=== PATIENT | male | born 1980 | race Caucasian/White ===

== ENCOUNTER 2021-02-19 05:52 | Emergency (ER) | payer OTHER, SELFPAY ==
[2021-02-19 06:01] VITALS: BP 116/73; PULSE 61; RESP 18; O2SAT 96
[2021-02-19 06:11] VITALS: BP 116/73; PULSE 56; RESP 16; TEMP 36.4; O2SAT 98; BMI 29.4
[2021-02-19 06:12] VITALS: BMI 29.4
--- NOTE | 2021-02-19 06:13 | CT_ITS ---
PROCEDURE INFORMATION: Exam: CT Abdomen And Pelvis Without Contrast Exam date and time: 02/19/2021 6:13 AM Age: 41 years old Clinical indication: Other: Flank pain; Additional info: RT flank pain no other history of kidney stones or issues just having pain never had before right side TECHNIQUE: Imaging protocol: Computed tomography of the abdomen and pelvis without contrast. Radiation optimization: All CT scans at this facility use at least one of these dose optimization techniques: automated exposure control; mA and/or kV adjustment per patient size (includes targeted exams where dose is matched to clinical indication); or iterative reconstruction. COMPARISON: No relevant prior studies available. FINDINGS: Liver: Unremarkable liver parenchyma on the basis of a noncontrast only study. Gallbladder and bile ducts: No calcified stones. No ductal dilation. Pancreas: Unremarkable. No significant pancreatic ductal dilatation seen. Spleen: Unremarkable. No splenomegaly noted. Adrenal glands: Normal. No mass. Kidneys and ureters: There is some trace asymmetric right renal pelvic fat stranding in comparison to the left which is nonspecific and which is without evidence of a radiodense obstructing ureteral stone. Cannot exclude a recently passed stone. Right kidney 3 mm nonobstructing stone. Stomach and bowel: Colonic diverticulosis without evidence of diverticulitis. Appendix: The appendix is visualized and appears unremarkable. Intraperitoneal space: No free air or free fluid. Vasculature: Unremarkable. No abdominal aortic aneurysm. Lymph nodes: Unremarkable. No enlarged lymph nodes. Urinary bladder: Urinary bladder is partly decompressed and not well evaluated. Reproductive: In the lower aspect of the prostate gland there is a 3 mm calcific focus. Cannot exclude a passed kidney stone within the prostatic urethra versus prostatic calcification. Bones/joints: Unremarkable. No acute fracture. Soft tissues: There is a fat containing right inguinal hernia. IMPRESSION: 1. Trace right renal pelvic fat stranding in comparison to the left which is nonspecific and without corresponding radiodense obstructing ureteral stone. However, cannot exclude minimal hydronephrosis related to a recently passed stone. 2. Right kidney 3 mm nonobstructing stone. 3. In the lower aspect of the prostate gland there is a 3 mm calcific focus. Cannot exclude a passed kidney stone within the prostatic urethra versus prostatic calcification. 4. Colonic diverticulosis without evidence of diverticulitis. 5. Fat containing small right inguinal hernia.
[2021-02-19 06:29] LABS: Microscopic, Urine URINE MICROSCOPIC (MICROSCOPIC)
[2021-02-19 06:30] LABS: Basophils # 0.1 K/mm3 (0-0.2); Basophils % 0.8 % (0.1-2.0); Eosinophils # 0.2 K/mm3 (0.0-0.4); Eosinophils % 2.4 % (0.1-12.0); Hematocrit 43.4 % (42.0-52.0); Hemoglobin 14.9 g/dL (14.1-18.0); Lymphocytes # 1.8 K/mm3 (0.7-4.5); Mean Corpuscular HGB Conc 34.4 g/dL (31.8-35.4); Mean Corpuscular Hemoglobin 28.8 pg (27.0-31.2); Mean Corpuscular Volume 83.7 fl (80-94); Mean Platelet Volume 8.1 fl (7.4-10.4); Monocytes # 0.4 K/mm3 (0.1-1.0); Monocytes % 5.7 % (1.7-9.3); Platelet Count 252 K/mm3 (142-424); Red Blood Count 5.18 M/mm3 (4.60-6.20); Red Cell Distribution Width 13.4 % (11.5-17.5); White Blood Count 7.4 K/mm3 (4.8-10.8)
[2021-02-19 06:31] LABS: Appearance,Urine CLEAR (Clear); Bilirubin,Urine Negative (Negative); Blood, Urine TRACE-I (Negative); Color,Urine YELLOW (Yellow); Glucose,Urine (UA) Negative (Negative); Ketones,Urine Negative (Negative); Leukocyte Esterase,Urine Negative (Negative); Nitrate,Urine Negative (Negative); PH,Urine 5.5 (5.0-8.5); Protein,Urine Negative (Negative); Specific Gravity, Urine >= 1.030 (1.005-1.030); Urobilinogen,Urine 0.2 EU/dl (0.2)
[2021-02-19 06:39] LABS: Chloride 107 mmol/L (98-107); Potassium 4.2 mmoL/L (3.5-5.1); Sodium 139 mmol/L (136-145)
[2021-02-19 06:41] LABS: Amorphous Sediment,Urine 1+ /lpf; RBC,Urine Occasional #/hpf (0-3); WBC,Urine Occasional #/hpf (0-3)
[2021-02-19 06:42] LABS: Alanine Aminotransferase 34 U/L (12-78); Albumin/Globulin Ratio 1.2 (1.1-1.8); Alkaline Phosphatase 84 U/L (38-126); Anion Gap 12.2 mEq/L (5-15); Aspartate Amino Transferase 48 U/L (17-59); Bilirubin,Total 0.4 mg/dl (0.2-1.3); Blood Urea Nitrogen 9 mg/dl (9-20); Calcium 8.7 mg/dl (8.4-10.2); Carbon Dioxide 24 mmol/L (22.0-30.0); Creatinine Clearance Estimated 108 mL/min (50-200); Estimated Glomerular Filt Rate 74 ml/min (>60); GFR (African American) 90 ML/MIN (>60); Globulin 3.4 g/dL (1.3-3.2); Glucose 126 mg/dl (74-100); Total Protein,Serum 7.4 g/dl (6.3-8.2)
[2021-02-19 06:47] LABS: C-Reactive Protein 6.4 mg/L (0-4)
[2021-02-19 06:54] LABS: Erythrocyte Sedimentation Rate 16 mm/hr (0-15)
--- NOTE | 2021-02-19 07:27 | [facility].EDGENADL ---
ED Disposition Clinical Impression: Flank pain, acute Disposition: Home, Self-Care Condition on Discharge: Good Instructions: DI for Flank Pain Additional Instructions: use meds and see pcp for follow up Referrals: Edvin Carrillo MD [Primary Care Provider] - - Critical Care Critical Care Time: No Attestation: On 02/19/21, the high probability of a clinically significant, sudden or life threatening deterioration of the following system(s) required my full and direct attention, intervention and personal management. The time I documented below is in addition to time spent performing reported procedures but includes the following listed in this critical care notation. Medical Decision Making - Medical Records Medical records reviewed: Yes: I reviewed the patient's medical records. - [place] Inquiry Pt receiving controlled substance: No Vital Signs: 02/19/21 06:01 02/19/21 06:11 Temperature 97.5 F L Temperature Source Oral Pulse Rate 61 Pulse Rate [Apical] 56 L Respiratory Rate 18 16 Blood Pressure 116/73 Blood Pressure [Right Arm] 116/73 Blood Pressure Mean 85 Blood Pressure Mean [Right Arm] 87 Blood Pressure Source [Right Arm] Automatic Cuff Blood Pressure Position [Right Arm] Sitting 02 Sat by Pulse Oximetry 96 98 Oxygen Delivery Method Room Air - Lab Data Lab results reviewed: Yes: I reviewed the patient's lab results. Lab Results 02/19/21 06:02: Urine Color Yellow, Urine Appearance Clear, Urine pH 5.5, Ur Specific [place] >= 1.030, Urine Protein Negative, Urine Glucose (UA) Negative, Urine Ketones Negative, Urine Blood Trace-i, Urine Nitrate Negative, Urine Bilirubin Negative, Urine Urobilinogen 0.2, Ur Leukocyte Esterase Negative, Urine RBC Occasional, Urine WBC Occasional, Ur Squamous Epith Cells 3-5, Amorphous Sediment 1+, Urine Bacteria None 02/19/21 06:23: WBC 7.4, RBC 5.18, Hgb 14.9, Hct 43.4, MCV 83.7, MCH 28.8, MCHC 34.4, RDW 13.4, Plt Count 252, MPV 8.1, Neut % (Auto) 67.0, Lymph % (Auto) 24.0, [place] % (Auto) 5.7, Eos % (Auto) 2.4, Baso % (Auto) 0.8, Neut # (Auto) 5.0, Lymph # (Auto) 1.8, Cooper # (Auto) 0.4, Eos # (Auto) 0.2, Baso # (Auto) 0.1, ESR 16 H 02/19/21 06:23: Sodium 139, Potassium 4.2, Chloride 107, Carbon Dioxide 24, Anion Gap 12.2, BUN 9, Creatinine 1.10, Estimated Creat Clear 108, Estimated GFR 74, Est GFR ( Amer) 90, Glucose 126 H, Calcium 8.7, Total Bilirubin 0.4, AST 48, ALT 34, Alkaline Phosphatase 84, C-Reactive Protein 6.4 H, Total Protein 7.4, Albumin 4.0, Globulin 3.4 H, Albumin/Globulin Ratio 1.2 Result diagrams: 02/19/21 06:23 02/19/21 06:23 Orders (Tests/Meds): ED MEDICATIONS Generic Name Dose Route Start Last Admin Trade Name Freq PRN Reason Stop Dose Admin Sodium Chloride 1,000 mls @ 999 mls/hr 02/19/21 06:15 02/19/21 06:20 Sod Chlor 0.9% 1000ml Bag IV 02/19/21 07:15 999 mls/hr .[id number] LORI Administration Discontinued Medications Generic Name Dose Route Start Last Admin Trade Name Freq PRN Reason Stop Dose Admin Ketorolac Tromethamine 30 mg 02/19/21 06:14 02/19/21 06:20 Ketorolac 30mg/Ml Vial IV 02/19/21 06:15 30 mg ONCE ONE Administration Ondansetron HCl 4 mg 02/19/21 06:18 02/19/21 06:20 Ondansetron 4mg/2ml Vial IV 02/19/21 06:19 4 mg ONCE ONE Administration Promethazine HCl 25 mg 02/19/21 06:34 02/19/21 06:39 Promethazine Hcl 25mg/Ml 1ml Vial IV 02/19/21 06:35 25 mg ONCE ONE Administration ORDERS Category Date Time Status C-Reactive Protein Stat Lab 02/19/21 06:23 Results Comprehensive Metabolic Panel Stat Lab 02/19/21 06:23 Results Procalcitonin Stat Lab 02/19/21 06:23 Results - CT Data CT Scan: Abdomen, Pelvis Time Received: 07:[address] Reviewed: Yes: I have viewed the radiologist's interpretation Preliminary Findings: Abnormal Medical Decision Narrative: possible recent stone - General Adult HPI - General Chief complaint: PAIN Stated complaint: Rt side
[2021-02-19 07:45] VITALS: BP 116/73; PULSE 66; RESP 18; TEMP 36.6; O2SAT 97
[2021-02-19 07:48] LABS: Procalcitonin 0.063 ng/mL (0.0-2.0)
== END 2021-02-19 07:45 | disposition home or self-care (01) ==
PROVIDERS: Emergency Provider Emergency Medicine; PCP Family Medicine
DX: R10.31 Right lower quadrant pain (principal); R11.10 Vomiting, unspecified
CPT/HCPCS: 74176; 80053; 81001; 84145; 85025; 85651; 86140; 96365; 96375; 99283; J2405

== ENCOUNTER → 2021-02-22 09:08 | Outpatient (CLI) | payer OTHER, SELFPAY ==
--- NOTE | 2021-02-22 09:50 | CT_ITS ---
PROCEDURE: CT ABDOMEN PELVIS WO/W CON CLINICAL INDICATION: RT FLANK PAIN,RENAL COLIC ON RT SIDE COMPARISON: CT CT ABDOMEN PELVIS WO CON from 02/19/2021 TECHNIQUE: IV Contrast: 75ML Isovue 370 Oral Contrast None Axial images obtained with sagittal and coronal reformats. All CT scans at the facility use one or more dose reduction, viz: automated exposure control, ma/kV adjustment per patient size (including targeted exams where dose is matched to indication, i.e. head), or iterative reconstruction technique. FINDINGS: LOWER THORAX: No acute finding ABDOMEN & PELVIS: The liver, gallbladder, pancreas and adrenal glands have an unremarkable appearance. There is mild splenomegaly at 13 cm. A 3 mm stone is present in the mid polar region of the right kidney. There is mild stranding of the right perinephric renal fat with somewhat edematous appearance of the right kidney. Initial post enhanced images demonstrates a wedge-shaped area of decreased attenuation involving the posterior and inferior aspect of the right kidney which shows some minimal enhancement on the delayed images. This is suspicious for an area of pyelonephritis. The delayed images also show mucosal thickening of the right renal pelvis and proximal ureter. The left kidney has an unremarkable appearance. There are few scattered small retroperitoneal lymph nodes. No intestinal obstruction or free air. Scattered air-fluid levels are present within nondistended colon. No evidence of appendicitis or diverticulitis. There are colonic diverticula noted in the descending and sigmoid colon there is a small amount fluid in the pelvis. Small central prostate calcifications are present. No acute bony anomalies are apparent. Small sclerotic focus in the right femoral head consistent with a bone island. IMPRESSION: The findings are compatible with right-sided pyelonephritis. No evidence of abscess. Mild thickening of the right renal pelvis and proximal ureter with stranding of the fat in the right Lucy renal region and proximal ureter which may also be related to urinary tract infection. There is right sided nephrolithiasis but no obstructing stone is apparent. No ureteral calculi. A renal infarction could have a similar appearance. Please correlate with clinical parameters. Dictated by: Tanner Issa MD 02/23/2021 09:27 Tanner Issa MD in [place] 02/23/2021 09:27
== END ==
PROVIDERS: PCP Family Medicine; Visit Provider Family Medicine
DX: R10.9 Unspecified abdominal pain (principal); N23 Unspecified renal colic
CPT/HCPCS: 74178; Q9967